=== PATIENT | female | born 1955 | race Caucasian/White ===

== ENCOUNTER 2017-05-30 07:58 | Emergency (ER) | payer OTHER ==
[~2017-05-30] VITALS: Ht 160 cm; Wt 80.0 kg
[~2017-05-30 07:58] MED LIST: ATENOLOL PO; ATIVAN PO; LOSA1TAB29 PO; RANI150T5 PO; TRAMADOL PO
[2017-05-30 08:02] VITALS: Ht 160 cm; Wt 80.0 kg
[2017-05-30] MEDS ORDERED: LIDOCAINE/MYLANTA 40 ML BTL PO STA (08:13)
[2017-05-30] MEDS ORDERED: BELLADONNA/PHENOBARBITAL TAB PO STA (08:13)
[2017-05-30] MEDS ORDERED: morphine 4 MG/ML VIAL IV STA (08:13)
[2017-05-30] MEDS ORDERED: ONDANSETRON 4 MG INJ IV STA (08:13)
[2017-05-30] MEDS ORDERED: FAMOTIDINE 20 MG TAB PO STA (08:13)
[2017-05-30 08:45] LABS: BASOPHIL # 0.1 10^3/ul (0.0-0.1); BASOPHILS % 0.7 % (0.0-2.0); EOSINOPHILS # 0.1 10^3/ul (0.0-0.5); EOSINOPHILS % 1.4 % (0.0-7.0); HEMATOCRIT 39.6 % (37.0-47.0); HEMOGLOBIN 12.9 g/dl (12.0-16.0); LYMPHOCYTES # 3.5 10^3/ul (0.8-2.9); LYMPHOCYTES % 47.1 % (15.0-51.0); MEAN CORPUSCULAR HEMOGLOBIN 28.7 pg (29.0-33.0); MEAN CORPUSCULAR HGB CONC 32.6 g/dl (32.0-37.0); MEAN CORPUSCULAR VOLUME 88.2 fl (82.0-101.0); MEAN PLATELET VOLUME 10.5 fl (7.4-10.4); MONOCYTE # 0.5 10^3/ul (0.3-0.9); MONOCYTES % 7.1 % (0.0-11.0); NEUTROPHILS % 43.3 % (39.0-77.0); PLATELET COUNT 221 10^3/UL (140-415); RED BLOOD COUNT 4.49 10^6/ul (4.20-5.40); RED CELL DISTRIBUTION WIDTH 12.4 % (11.5-14.5); WHITE BLOOD COUNT 7.4 10^3/ul (4.8-10.8)
[2017-05-30] MEDS ORDERED: PANT40TA4 PO (09:05)
[2017-05-30] MEDS ORDERED: LOSA1TAB20 PO (09:05)
[2017-05-30] MEDS ORDERED: ATEN-51 PO (09:06)
[2017-05-30] MEDS ORDERED: AMLO-147 PO (09:06)
[2017-05-30] MEDS ORDERED: CHOL400T10 PO (09:07)
[2017-05-30 09:10] LABS: ALANINE AMINOTRANSFERASE 40 IU/L (13-69); ALBUMIN 4.1 g/dl (3.3-4.9); ALBUMIN/GLOBULIN RATIO 1.57; ALKALINE PHOSPHATASE 109 IU/L (42-121); ANION GAP 12 (8-16); ASPARTATE AMINO TRANSFERASE 22 IU/L (15-46); BILIRUBIN,INDIRECT 0.5 mg/dl (0-1.1); BILIRUBIN,TOTAL 0.5 mg/dl (0.2-1.3); BLOOD UREA NITROGEN 18 mg/dl (7-20); CALCIUM 9.8 mg/dl (8.4-10.2); CARBON DIOXIDE 27 mmol/L (21-31); CHLORIDE 104 mmol/L (97-110); CREATININE 0.75 mg/dl (0.44-1.00); GLUCOSE 114 mg/dl (70-220); POTASSIUM 3.2 mmol/L (3.5-5.1); SODIUM 140 mmol/L (135-144); TOTAL PROTEIN 6.7 g/dl (6.1-8.1)
--- NOTE | 2017-05-30 09:18 | RADRPT ---
PROCEDURE: Chest Radiograph. CLINICAL INDICATION: Chest pain. Abdominal pain. TECHNIQUE: Single frontal chest radiograph. COMPARISON: Chest radiograph 07/17/2012 FINDINGS: Heart size is within normal limits. Atherosclerotic calcifications are present. No infiltrate or e ffusion is seen. The bones are intact. IMPRESSION: 1. No evidence of acute cardiopulmonary disease. 2. Atherosclerotic vascular disease. RPTAT: KK .Dakota Andres MD, MD Date Time Electronically viewed and signed by .Dakota Andres MD, on 05/30/2017 09:18 .B/
[2017-05-30 09:24] LABS: TROPONIN-I < 0.012 ng/ml (0.00-0.12)
[2017-05-30] MEDS ORDERED: NAPR-260 PO (10:23)
[2017-05-30] MEDS ORDERED: MAG355OR14 PO (10:23)
[2017-05-30] MEDS ORDERED: FAMO40TA52 PO (10:23)
[2017-05-30 10:51] VITALS: BP 118/78; PULSE 71; RESP 17
--- NOTE | 2017-05-30 12:13 | ERD ---
ER Documentation Chief Complaint Date/Time DATE: 05/30/17 TIME: 12:08 Chief Complaint MID EPIGASTRIC PAIN RADIATING TO CHEST SINCE YESTERDAY. HPI 61-year-old woman complains of sharp epigastric abdominal pain which is burning , radiating up to the throat, constant daily lasting 1 week. She has had similar episodes in the past and suspects gastritis. She admits to eating spicy and oily foods daily. She denies chest pain, no fevers or chills, no weight loss, no vomiting or diarrhea, no blood per rectum or melena. ROS All systems reviewed and are negative except as per history of present illness. Medications Home Meds Active Scripts Naproxen* (Naprosyn*) 500 Mg Tablet, 500 MG PO BID Y for PAIN AND/OR INFLAMMATION, #30 TAB Prov:MARGARITO BOTELLO MD 05/30/17 Famotidine* (Famotidine*) 40 Mg Tablet, 40 MG PO HS, #30 TAB Prov:MARGARITO BOTELLO MD 05/30/17 Mag Hydrox/Al Hydrox/Simeth (Maalox Advanced Suspension) 355 Ml Oral.susp, 2 TSP PO TID for PAIN, #24 OZ Prov:MARGARITO BOTELLO MD 05/30/17 Reported Medications Cholecalciferol* (Vitamin D*) 400 Unit Tablet, 400 UNIT PO DAILY, TAB 05/30/17 Amlodipine Besylate* (Amlodipine Besylate*) 10 Mg Tablet, 10 MG PO DAILY, #30 TAB 05/30/17 Atenolol* (Atenolol*) 25 Mg Tablet, 25 MG PO BID, #60 TAB 05/30/17 Losartan-Hydrochlorothiazide (Losartan-HCTZ) 100-25 Mg Tab, 1 TAB PO DAILY, TAB 05/30/17 Pantoprazole* (Pantoprazole*) 40 Mg Tablet.dr, 40 MG PO AC BREAKFAST, TAB 05/30/17 Discontinued Reported Medications Ranitidine Hcl* (Ranitidine Hcl*) 150 Mg Tablet, 150 MG PO BID 07/18/12 Losartan/Hydrochlorothiazide (Hyzaar 100-25 Tablet) 1 Tab Tablet, 1 TAB PO DAILY 07/18/12 [Tramadol] No Conflict Check, 50 MG PO BID Y 07/17/12 [Atenolol] No Conflict Check, 25 MG PO BID 07/17/12 [Ativan] No Conflict Check, 0.5 MG PO HS 07/17/12 Allergies Allergies: Coded Allergies: milk (Verified Allergy, Unknown, 05/30/17) tomato (Verified Allergy, Unknown, 05/30/17) CANNOT EAT FOODS WITH TOMATO (KETCHUP, ETC.) Uncoded Allergies: SOUR CREAM (Allergy, Unknown, 07/17/12) PMhx/Soc Gastritis, hypertension, History of Surgery: Yes (SALIVARY GLAND 15 YRS AGO, APPENDECTOMY 25 YRS AGO, GALLBLADDER 17 YRS AGO,) Hx Neurological Disorder: No Hx Respiratory Disorders: Yes (ASTHMA, 2008) Hx Cardiac Disorders: Yes (HYPERTENSION, 2001) Hx Psychiatric Problems: Yes (ANXIETY 1997) Hx Miscellaneous Medical Probl: Yes (ARTHRITIS 2005, BACK PROBLEM (DISC) 2001) Hx Alcohol Use: No Hx Substance Use: No Hx Tobacco Use: No Smoking Status: Never smoker FmHx Family History: No diabetes Physical Exam Vitals Vital Signs Date Time Temp Pulse Resp B/P Pulse Ox O2 Delivery O2 Flow Rate FiO2 05/30/17 10:51 71 17 118/78 99 05/30/17 09:20 77 17 119/61 99 05/30/17 08:02 97.6 88 17 157/69 99 Physical Exam GENERAL: Well-developed, well-nourished, well-hydrated, in no apparent distress , looks nontoxic in appearance HEENT: Moist mucous membranes, pink conjunctiva, no cervical spine tenderness or step-off deformities, no goiter, no jaundice or icterus, extraocular movements intact without pain. No submandibular induration, and no pharyngeal erythema NEURO: Alert and oriented 3, cranial nerves II through XII intact bilaterally, pupils equal round reactive to light, no focal deficits or facial asymmetry, sensation intact distally Strength 5/5 in upper and lower extremities bilaterally CARDIAC: Regular rate and rhythm, no murmurs rubs or gallops LUNGS: Clear bilaterally no wheezing crackles or stridor ABDOMEN: Soft nontender, no guarding, no rigidity, no rebound, no psoas sign no obturator sign. Normoactive bowel sounds SKIN: Warm and dry to touch, no abrasions, contusions, or hematomas, no lacerations, no ecchymosis, no target lesions, and without ulcers EXTREMITIES: No clubbing cyanosis or edema, calves are bilaterally symmetrical, no Homans sign, no popliteal cord sign. Distal pulses equal and bilateral PSYCH: Normal affect without agitation or irritability Result Diagram: 05/30/17 0820 05/30/17 0820 Results 24 hrs Laboratory Tests Test 05/30/17 08:20 White Blood Count 7.410^3/ul Red Blood Count 4.4910^6/ul Hemoglobin 12.9g/dl Hematocrit 39.6% Mean Corpuscular Volume 88.2fl Mean Corpuscular Hemoglobin 28.7pg Mean Corpuscular Hemoglobin Concent 32.6g/dl Red Cell Distribution Width 12.4% Platelet Count 16529^3/UL Mean Platelet Volume 10.5fl Neutrophils % 43.3% Lymphocytes % 47.1% Monocytes % 7.1% Eosinophils % 1.4% Basophils % 0.7% Nucleated Red Blood Cells % 0.0/100WBC Neutrophils # (Manual) 3.210^3/ul Lymphocytes # 3.510^3/ul Monocytes # 0.510^3/ul Eosinophils # 0.110^3/ul Basophils # 0.110^3/ul Nucleated Red Blood Cells # 0.010^3/ul Sodium Level 140mmol/L Potassium Level 3.2mmol/L Chloride Level 104mmol/L Carbon Dioxide Level 27mmol/L Anion Gap 12 Blood Urea Nitrogen 18mg/dl Creatinine 0.75mg/dl Glucose Level 114mg/dl Calcium Level 9.8mg/dl Total Bilirubin 0.5mg/dl Direct Bilirubin 0.00mg/dl Indirect Bilirubin 0.5mg/dl Aspartate Amino Transf (AST/SGOT) 22IU/L Alanine Aminotransferase (ALT/SGPT) 40IU/L Alkaline Phosphatase 109IU/L Troponin I < 0.012ng/ml Total Protein 6.7g/dl Albumin 4.1g/dl Globulin 2.60g/dl Albumin/Globulin Ratio 1.57 Lipase 122U/L Current Medications Medications (Trade) Dose Ordered Sig/Radames Route PRN Reason Start Time Stop Time Status Last Admin Dose Admin Morphine Sulfate (morphine) 4 mg ONCE STAT IV 05/30/17 08:13 05/30/17 08:18 DC 05/30/17 08:29 Ondansetron HCl (Zofran Inj) 4 mg ONCE STAT IV 05/30/17 08:13 05/30/17 08:18 DC 9/13/17 08:28 Famotidine (Pepcid) 40 mg ONCE STAT PO 05/30/17 08:13 05/30/17 08:18 DC 05/30/17 08:28 Miscellaneous Medication (Gi Cocktail (2)) 40 ml ONCE STAT PO 05/30/17 08:13 05/30/17 08:18 DC 05/30/17 08:28 Belladonna/ Phenobarbital () 2 tab ONCE STAT PO 05/30/17 08:13 05/30/17 08:18 DC 05/30/17 08:28 Procedures/MDM IV line was established patient was placed on cardiac cath tech rhythm strip revealed a sinus rhythm at about 80 bpm with upright P and T waves. Patient was afebrile. EKG performed, read by me: 77 bpm, normal sinus rhythm, normal axis, no acute ST segment changes, narrow QRS complex, with good R-wave progression in precordial leads. One AP view of the chest performed, read by me reveals no acute infiltrates, normal mediastinum, sharp costophrenic and cardiac borders, no air under the diaphragm. Otherwise unremarkable chest x-ray. CBC and electrolytes were normal, liver function tests were normal, troponin was negative. I administered morphine 4 mg IV, Zofran 4 mg IV, GI cocktail 50 cc p.o., famotidine 40 mg p.o. with good effect. Differential diagnoses considered, included but not limited to acute coronary syndrome, pulmonary embolism, aortic dissection, abdominal aortic aneurysm, sepsis, stroke, meningitis, encephalitis, pneumonia, appendicitis, cholecystitis , bowel obstruction, pyelonephritis, nephrolithiasis, cystitis, as well as metabolic, hematologic, and electrolyte abnormalities. As well as abscess, cellulitis, fractures, and dislocations. Patient feels much better at this time, and vital signs are normal, symptoms have improved. I did give strict instructions to return to the ED if symptoms continue or worsen, patient will otherwise follow-up with primary care physician. Patient understood instructions and agreed to plan. Disclaimer: Inadvertent spelling and grammatical errors are likely due to EHR/ dictation software use and do not reflect on the overall quality of patient care. Also, please note that the electronic time recorded on this note does not necessarily reflect the actual time of the patient encounter. Departure Diagnosis: Primary Impression: Epigastric abdominal pain Condition: Good Patient Instructions: Chest Pain, Uncertain Cause, Gastritis (Adult) Referrals: YARA FLOR DAVID MD May 30, 2017 12:13
== END 2017-05-30 10:51 | disposition home or self-care (01) ==
LOC: E/R 07:58
DX: R10.13 Epigastric pain (principal); I10 Essential (primary) hypertension; J45.909 Unspecified asthma, uncomplicated
CPT/HCPCS: 36415; 71010; 80053; 83690; 84484; 85025; 93005; 96374; 96375; J2270; J2405; Z7502; Z7610

== ENCOUNTER 2018-05-24 13:29 | Emergency (ER) | END 2018-05-24 17:34 | disposition home or self-care (01) ==

== ENCOUNTER 2018-05-26 00:34 | Emergency (ER) | END 2018-05-26 02:15 | disposition home or self-care (01) ==

== ENCOUNTER 2018-08-30 03:49 | Observation (INO) | END 2018-08-30 16:52 | disposition home or self-care (01) ==